=== PATIENT | male | born 1970 | race Caucasian/White ===

== ENCOUNTER 2023-02-24 10:14 | Day surgery (SDC) | payer OTHER ==
[~2023-02-24] VITALS: Ht 167.6 cm; Wt 133.8 kg
[2023-02-24] MEDS ORDERED: KETOROLAC 30 MG/ML VIAL ONE (12:10)
[2023-02-24] MEDS ORDERED: LIDOCAINE 2% 100 MG/5 ML UJET TP ONE (12:11)
[2023-02-24] MEDS ORDERED: fentaNYL citrate 0.05 MG/ML VIAL ONE (12:11)
[2023-02-24] MEDS ORDERED: KETOROLAC 30 MG/ML VIAL IVP ONE (12:30)
== END 2023-02-24 13:20 | disposition home or self-care (01) ==
LOC: MDS 10:14 → MMU 10:15 → MDS 13:20
PROVIDERS: ATTEND Internal Medicine Gastroenterology
DX: Z12.11 Encounter for screening for malignant neoplasm of colon (principal); Z85.038 Personal history of other malignant neoplasm of large intestine; Z80.0 Family history of malignant neoplasm of digestive organs; K80.10 Calculus of gallbladder with chronic cholecystitis without obstruction; Z98.0 Intestinal bypass and anastomosis status
CPT/HCPCS: 45378; J1885; J3010